=== PATIENT | female | born 1980 | race Caucasian/White ===

== ENCOUNTER 2016-11-03 04:07 | Emergency (ER) | payer MEDICAID, OTHER ==
[2016-11-03 04:17] VITALS: BP 125/80
--- NOTE | 2016-11-03 04:34 | ER Document Report ---
ED General - General Chief Complaint: Rash Stated Complaint: POSSIBLE RASH Time Seen by Provider: 11/03/16 04:25 Notes: Patient is a 36-year-old female presents with complaint of a rash. Patient says the rash is on the lower portion of her neck, and decrease of her left arm , and also in the creases of her inguinal folds. She has been applying steroid cream and Benadryl cream. She says it has not gone away and therefore she is come to the ER. It is not painful. She has had no fevers. No other complaints at this time. TRAVEL OUTSIDE OF THE [place] IN LAST 30 DAYS: No - Related Data Allergies/Adverse Reactions: No Known Allergies Allergy (Verified 05/11/15 19:02) Past Medical History - Social History Smoking Status: Unknown if Ever Smoked Frequency of alcohol use: None Drug Abuse: None Family History: Reviewed & Not Pertinent, Arthritis Patient has suicidal ideation: No Patient has homicidal ideation: No Renal/ Medical History: Denies: Hx Peritoneal Dialysis Musculoskeltal Medical History: Reports Hx Musculoskeletal Deformity, Reports Hx Musculoskeletal Trauma Past Surgical History: Reports: Hx Gynecologic Surgery - Leep, cauterization - Immunizations Hx Diphtheria, Pertussis, Tetanus Vaccination: Yes Review of Systems - Review of Systems Notes: My Normal Review Basic REVIEW OF SYSTEMS: CONSTITUTIONAL : Denies fever, chills, or sweats. Denies recent illness. GASTROINTESTINAL: Denies abdominal pain. Denies nausea, vomiting, or diarrhea. Denies constipation. Last BM: MUSCULOSKELETAL: Denies neck or back pain or joint pain or swelling. SKIN: Rash ALL OTHER SYSTEMS REVIEWED AND NEGATIVE. Physical Exam - Vital signs Vitals: Temp Pulse Resp BP Pulse Ox 97.4 F 71 18 125/80 99 11/03/16 04:12 11/03/16 04:12 11/03/16 04:12 11/03/16 04:12 11/03/16 04:12 - Notes Notes: General Appearance: Well nourished, alert, cooperative, no acute distress, no obvious discomfort. Well appearing. Vitals: reviewed, See vital signs table. Eyes: PERRL, EOMI, Conjuctiva clear Mouth: No decreasd moisture Extremities: strength 5/5 in all extremities, good pulses in all extremities, no swelling or tenderness in the extremities, no edema. Skin: Patient has erythematous macular rash that is easily blanchable and nonpainful in the left antecubital fossa as well as in bilateral inguinal folds. She has just a small spot over the base of her neck. The only location of the rashes are there is a skinfold. This is consistent with probable heat rash with secondary yeast infection. Neuro: speech clear, oriented x 3, normal affect, responds appropriately to questions. Course - Re-evaluation Re-evalutation: 11/03/16 04:36 The only location of the rashes are there is a skinfold. This is consistent with probable heat rash with secondary yeast infection. I will write prescription for Lotrisone cream. I encouraged her to return to ER if she has worsening redness or spreading of the rash, any swelling, or fevers. Patient agrees with plan and will be discharged home. Dictation of this chart was performed using voice recognition software; therefore, there may be some unintended grammatical errors. - Vital Signs Vital signs: Temp Pulse Resp BP Pulse Ox 97.4 F 71 18 125/80 99 11/03/16 04:12 11/03/16 04:12 11/03/16 04:12 11/03/16 04:12 11/03/16 04:12 Discharge - Discharge Clinical Impression: Rash Condition: Good Disposition: HOME, SELF-CARE Additional Instructions: Please apply a thin layer of the lotrisone cream to you rash daily. Please return to the ER or follow up with your doctor if you have worsening of your rash, fevers, or have any further concerns. Prescriptions: Clotrimazole/Betamethasone Dip [Lotrisone Cream] 45 gm TP ASDIR PRN #1 cream.gm. PRN Reason:
== END 2016-11-03 04:37 | disposition home or self-care (01) ==
LOC: ER 04:07
DX: R21 Rash and other nonspecific skin eruption (principal); M54.2 Cervicalgia; M79.602 Pain in left arm
CPT/HCPCS: 99282

== ENCOUNTER 2017-01-18 10:22 | Emergency (ER) | payer MEDICAID ==
--- NOTE | 2017-01-18 11:33 | RADIOLOGY REPORT (SQ) ---
EXAM DESCRIPTION: WRIST RIGHT 3 VIEWS COMPLETED DATE/TIME: 01/18/2017 11:18 am REASON FOR STUDY: fall last night, get navicular view COMPARISON: None. NUMBER OF VIEWS: Four views TECHNIQUE: AP, lateral, scaphoid view, and oblique radiographic images acquired of the right wrist. LIMITATIONS: None. FINDINGS: MINERALIZATION: Normal. BONES: No acute fracture or dislocation. No worrisome bone lesions. Normal alignment. SOFT TISSUES: No soft tissue swelling. No foreign body. OTHER: No other significant finding. IMPRESSION: NEGATIVE STUDY OF THE RIGHT WRIST. NO RADIOGRAPHIC EVIDENCE OF ACUTE INJURY. TECHNICAL DOCUMENTATION: JOB ID: [id number] [employer]- All Rights Reserved
--- NOTE | 2017-01-18 11:36 | RADIOLOGY REPORT (SQ) ---
EXAM DESCRIPTION: HAND RIGHT 3 VIEWS COMPLETED DATE/TIME: 01/18/2017 11:18 am REASON FOR STUDY: fall last night, get navicular view COMPARISON: None. EXAM PARAMETERS: NUMBER OF VIEWS: Three views. TECHNIQUE: AP, lateral and oblique radiographic images acquired of the right hand. LIMITATIONS: None. FINDINGS: MINERALIZATION: Normal. BONES: No acute fracture or dislocation. No worrisome bone lesions. JOINTS: No effusions. SOFT TISSUES: No soft tissue swelling. No foreign body. OTHER: No other significant finding. IMPRESSION: NEGATIVE STUDY OF THE RIGHT HAND. NO RADIOGRAPHIC EVIDENCE OF ACUTE INJURY. TECHNICAL DOCUMENTATION: JOB ID: [id number] [employer]- All Rights Reserved
--- NOTE | 2017-01-18 11:58 | ER Document Report ---
HPI - HPI Onset: Yesterday Quality of pain: Achy Pain Level: 3 Context: 36-year-old female hyper flexed her right wrist to prevent injury when she fell last night. She has pain proximal hand medial and laterally. No previous injury. Associated Symptoms: None Exacerbated by: Movement Relieved by: Denies Similar symptoms previously: No Recently seen / treated by doctor: No - ROS ROS below otherwise negative: Yes Systems Reviewed and Negative: Yes All other systems reviewed and negative - CARDIOVASCULAR Cardiovascular: DENIES: Chest pain - REPRODUCTIVE Reproductive: DENIES: : - DERM Skin Color: Normal Past Medical History - General Information source: Patient - Social History Smoking Status: Never Smoker Chew tobacco use (# tins/day): No Frequency of alcohol use: None Drug Abuse: None Lives with: Spouse/Significant other Family History: Reviewed & Not Pertinent, Arthritis - Medical History Medical History: Negative Renal/ Medical History: Denies: Hx Peritoneal Dialysis Musculoskeltal Medical History: Reports Hx Musculoskeletal Deformity, Reports Hx Musculoskeletal Trauma Past Surgical History: Reports: Hx Gynecologic Surgery - Leep, cauterization - Immunizations Hx Diphtheria, Pertussis, Tetanus Vaccination: Yes Vertical Provider Document - CONSTITUTIONAL Agree With Documented VS: Yes Exam Limitations: No Limitations General Appearance: No Apparent Distress - INFECTION CONTROL TRAVEL OUTSIDE OF THE [place] IN LAST 30 DAYS: No - HEENT HEENT: Normocephalic - NECK Neck: Supple - RESPIRATORY O2 Sat by Pulse Oximetry: 99 - MUSCULOSKELETAL/EXTREMETIES Musculoskeletal/Extremeties: MAEW, FROM, Tender - dorsal right hand , proximal right 1st MC, and over dorsal lateral carpel, mild swelling. NOn tender radius, ulna, and snuffbox - NEURO Level of Consciousness: Awake, Alert Motor/Sensory: No Motor Deficit, No Sensory Deficit - DERM Integumentary: Warm, Dry Course - Re-evaluation Re-evalutation: 01/18/17 11:58 X-rays are negative will place an Tip bandage on her hand and wrist - Vital Signs Vital signs: Temp Pulse Resp BP Pulse Ox 98.6 F 74 18 134/89 H 99 01/18/17 10:27 01/18/17 10:27 01/18/17 10:43 01/18/17 10:27 01/18/17 10:27 Procedures - Immobilization Right Wrist Time completed: 11:59 Pre-Proc Neuro Vasc Exam: Normal Immobilizer type: Tip wrap Performed by: PCT Post-Proc Neuro Vasc Exam: Normal Alignment checked and good: Yes Discharge - Discharge Clinical Impression: Right wrist and hand sprain Condition: Good Disposition: HOME, SELF-CARE Instructions: Acetaminophen, Tip Wrap ([facility]), Elevate the Injury ([facility]), Use of Gfah-Xli-Bpjpinx Ibuprofen ([facility]) Additional Instructions: Elevate above the heart to reduce swelling Tylenol and Motrin for pain Tip wrap for several days Copy of negative x-rays reports given to you to er if worse or any concerns Please complete the patient satisfaction survey if you get one, and return it.. If you do not receive a survey, then you can go to the [facility] website, [email or web address] and place your comments about your very good care. Thank you very much. It was a pleasure being your medical provider today. Forms: Return to Work
[2017-01-18 12:12] VITALS: BP 132/92
== END 2017-01-18 12:12 | disposition home or self-care (01) ==
LOC: ER 10:22
DX: S63.91XA Sprain of unspecified part of right wrist and hand, initial encounter (principal); W19.XXXA Unspecified fall, initial encounter
CPT/HCPCS: 99283

== ENCOUNTER 2017-05-12 18:47 | Emergency (ER) | payer MEDICAID, OTHER ==
[2017-05-12] MEDS ORDERED: ONDANSETRON 4 MG TAB.RAPDIS PO ONE (19:23)
[2017-05-12] MEDS ORDERED: OXYCODONE-ACETAMINOPHEN 5-325 MG TABLET PO ONE (19:23)
--- NOTE | 2017-05-12 19:27 | ER Document Report ---
ED Medical Screen (RME) - General Chief Complaint: Abdominal Pain Stated Complaint: ABDOMINAL PAIN Time Seen by Provider: 05/12/17 19:17 Notes: 36-year-old female patient comes emergency room complaining of severe abdominal pain started about 6 PM tonight. It started about 15 minutes after eating some thin-slice pizza. There is nausea without vomiting. She is sobbing sitting in a wheelchair holding her lower abdomen and rocking back and forth mostly leaning forward. She indicates the pain in the abdomen is all the way across the lower abdomen. She reports she has been having diarrhea with abdominal cramping and ears popping for the past 3 weeks. Brief exam shows severe epigastric tenderness without right upper quadrant abdominal tenderness. There is also severe left lower quadrant abdominal tenderness without right lower quadrant abdominal tenderness. She states she does not smoke, however there is a strong odor of some tobacco product on or around her. I have greeted and performed a rapid initial assessment of this patient. A comprehensive ED assessment and evaluation of the patient, analysis of test results and completion of the medical decision making process will be conducted by additional ED providers. TRAVEL OUTSIDE OF THE [place] IN LAST 30 DAYS: No - Related Data Allergies/Adverse Reactions: No Known Allergies Allergy (Verified 05/12/17 18:49) Past Medical History - Social History Chew tobacco use (# tins/day): No Frequency of alcohol use: None Drug Abuse: None Renal/ Medical History: Denies: Hx Peritoneal Dialysis Musculoskeltal Medical History: Reports Hx Musculoskeletal Deformity, Reports Hx Musculoskeletal Trauma Past Surgical History: Reports: Hx Gynecologic Surgery - Leep, cauterization - Immunizations Hx Diphtheria, Pertussis, Tetanus Vaccination: Yes Physical Exam - Vital signs Vitals: Temp Pulse Resp BP Pulse Ox 98.2 F 111 H 24 H 154/108 H 96 05/12/17 18:56 05/12/17 18:56 05/12/17 18:56 05/12/17 18:56 05/12/17 18:56 Course - Vital Signs Vital signs: Temp Pulse Resp BP Pulse Ox 98.2 F 111 H 24 H 154/108 H 96 05/12/17 18:56 05/12/17 18:56 05/12/17 18:56 05/12/17 18:56 05/12/17 18:56 - Laboratory Result Diagrams: 05/12/17 19:56 05/12/17 19:56 Laboratory results interpreted by me: 05/12/17 05/12/17 19:56 19:56 WBC 11.9 H RDW 15.3 H Absolute Neutrophils 8.9 H Glucose 123 H
[2017-05-12 20:11] LABS: ABSOLUTE BASOPHILS # (AUTO) 0.1 10^3/uL (0.0-0.2); ABSOLUTE EOSINOPHILS # (AUTO) 0.4 10^3/uL (0.0-0.6); ABSOLUTE LYMPHOCYTES (AUTO) 1.8 10^3/uL (0.5-4.7); ABSOLUTE MONOCYTES (AUTO) 0.7 10^3/uL (0.1-1.4); ABSOLUTE NEUT (AUTO) 8.9 10^3/uL (1.7-8.2); BASOPHILS % (AUTO) 0.9 % (0-2); EOSINOPHILS % (AUTO) 3.7 % (0-6); HEMATOCRIT 42.3 % (36.0-47.0); HEMOGLOBIN 14.1 g/dL (12.0-15.5); LYMPHOCYTES % (AUTO) 15.3 % (13-45); MEAN CORPUSCULAR HEMOGLOBIN 28.2 pg (27.0-33.4); MEAN CORPUSCULAR HGB CONC 33.3 g/dL (32.0-36.0); MEAN CORPUSCULAR VOLUME 85 fl (80-97); MONOCYTES % (AUTO) 5.5 % (3-13); PLATELET COUNT 351 10^3/uL (150-450); RED BLOOD COUNT 4.98 10^6/uL (3.72-5.28); RED CELL DISTRIBUTION WIDTH 15.3 % (11.5-14.0); SEGMENTED NEUTROPHILS % (AUTO) 74.6 % (42-78); TOTAL CELLS COUNTED % (AUTO) 100 %; WHITE BLOOD COUNT 11.9 10^3/uL (4.0-10.5)
[2017-05-12 20:38] LABS: ALANINE AMINOTRANSFERASE 19 U/L (9-52); ALBUMIN 4.5 g/dL (3.5-5.0); ALKALINE PHOSPHATASE 75 U/L (38-126); ANION GAP 12 (5-19); ASPARTATE AMINO TRANSFERASE 15 U/L (14-36); BILIRUBIN,DIRECT 0.2 mg/dL (0.0-0.4); BILIRUBIN,TOTAL 0.2 mg/dL (0.2-1.3); BLOOD UREA NITROGEN 8 mg/dL (7-20); CARBON DIOXIDE 25 mmol/L (22-30); CHLORIDE 106 mmol/L (98-107); GLUCOSE 123 mg/dL (75-110); POTASSIUM 4.3 mmol/L (3.6-5.0); TOTAL PROTEIN 7.7 g/dL (6.3-8.2)
[2017-05-12 21:45] LABS: APPEARANCE,URINE SLIGHTLY-CLOUDY; BILIRUBIN,URINE NEGATIVE (NEGATIVE); CALCIUM OXALATE CRYSTALS,URINE MODERATE /HPF; COLOR,URINE YELLOW; GLUCOSE, URINE NEGATIVE (NEGATIVE); KETONES,URINE NEGATIVE (NEGATIVE); LEUKOCYTE ESTERASE,URINE NEGATIVE (NEGATIVE); NITRITE,URINE NEGATIVE (NEGATIVE); PROTEIN,URINE NEGATIVE (NEGATIVE); URINE SPECIFIC GRAVITY 1.023; UROBILINOGEN,URINE NEGATIVE mg/dL (<2.0)
[2017-05-12 21:57] LABS: URINE AMPHETAMINES SCREEN NEGATIVE; URINE BARBITURATES SCREEN NEGATIVE; URINE BENZODIAZEPINES SCREEN NEGATIVE; URINE COCAINE SCREEN NEGATIVE; URINE MARIJUANA (THC) SCREEN NEGATIVE; URINE METHADONE SCREEN NEGATIVE; URINE PHENCYCLIDINE SCREEN NEGATIVE
[2017-05-12] MEDS ORDERED: DICYCLOMINE HCL INJ 20 MG/2 ML AMPULE IM PRN (22:58)
--- NOTE | 2017-05-12 23:41 | ER Document Report ---
ED General - General Information source: Patient TRAVEL OUTSIDE OF THE [place] IN LAST 30 DAYS: No - HPI Patient complains to provider of: abdominal pain Onset: Just prior to arrival Onset/Duration: Sudden Quality of pain: Pressure Severity: Moderate Associated symptoms: Nausea Exacerbated by: Denies Relieved by: Denies <JACKELYN BARLOW - Last Filed: 05/13/17 00:19> <HETAL MARTINEZ - Last Filed: 05/13/17 02:26> - General Chief Complaint: Abdominal Pain Stated Complaint: ABDOMINAL PAIN Time Seen by Provider: 05/12/17 19:17 - HPI Notes: She states she ate a pizza that was brand-new just prior to arrival and shortly thereafter developed epigastric pain as well as bilateral lower quadrant abdominal pain. Patient states it is associated with nausea (no vomiting )and cramping. She states that she had a left ear infection and she was on antibiotics for stays however since it began to bother her stomach her doctor discontinued medication a few days ago. She states she has been having intermittent diarrhea for the last few days as well. (JACKELYN BARLOW) - Related Data Allergies/Adverse Reactions: No Known Allergies Allergy (Verified 05/12/17 18:49) Past Medical History - General Information source: Patient - Social History Smoking Status: Never Smoker Chew tobacco use (# tins/day): No Frequency of alcohol use: None Drug Abuse: None Family History: Reviewed & Not Pertinent, Arthritis Patient has suicidal ideation: No Patient has homicidal ideation: No - Past Medical History Cardiac Medical History: Reports: None Pulmonary Medical History: Reports: None EENT Medical History: Reports: None Neurological Medical History: Reports: None Endocrine Medical History: Reports: None Renal/ Medical History: Reports: None. Denies: Hx Peritoneal Dialysis Malignancy Medical History: Reports: None GI Medical History: Reports: None Musculoskeltal Medical History: Reports Hx Musculoskeletal Deformity, Reports Hx Musculoskeletal Trauma Skin Medical History: Reports None Psychiatric Medical History: Reports: None Traumatic Medical History: Reports: None Infectious Medical History: Reports: None Past Surgical History: Reports: Hx Gynecologic Surgery - Leep, cauterization - Immunizations Hx Diphtheria, Pertussis, Tetanus Vaccination: Yes <JACKELYN BARLOW E - Last Filed: 05/13/17 00:19> Physical Exam <JACKELYN BARLOW E - Last Filed: 05/13/17 00:19> <HETAL MARTINEZ - Last Filed: 05/13/17 02:26> - Vital signs Vitals: Temp Pulse Resp BP Pulse Ox 98.2 F 111 H 24 H 154/108 H 96 05/12/17 18:56 05/12/17 18:56 05/12/17 18:56 05/12/17 18:56 05/12/17 18:56 - Notes Notes: PHYSICAL EXAMINATION: GENERAL: Well-appearing, well-nourished and in mild distress due to abdominal pain. HEAD: Atraumatic, normocephalic. EYES: Pupils equal round and reactive to light, extraocular movements intact, conjunctiva are normal. ENT: Nares patent, oropharynx clear without exudates. Moist mucous membranes. NECK: Normal range of motion, supple without lymphadenopathy LUNGS: Breath sounds clear to auscultation bilaterally and equal. No wheezes rales or rhonchi. HEART: Regular rate and rhythm without murmurs ABDOMEN: Obese, soft, epigastric as well as bilateral lower quadrant mild tenderness, nondistended abdomen. No guarding, no rebound. No masses appreciated. Female : deferred Musculoskeletal: Normal range of motion, no pitting or edema. No cyanosis. NEUROLOGICAL: Cranial nerves grossly intact. Normal speech, normal gait. Normal sensory, motor exams PSYCH: Normal mood, normal affect. SKIN: Warm, Dry, normal turgor, no rashes or lesions noted. (RINPARISHDUYENBEHZAD Henley) Course - Laboratory Result Diagrams: 05/12/17 19:56 05/12/17 19:56 <RINJACKELYN LUGO E - Last Filed: 05/13/17 00:19> - Laboratory Result Diagrams: 05/12/17 19:56 05/12/17 19:56 <HETAL MARTINEZ - Last Filed: 05/13/17 02:26> - Re-evaluation Re-evalutation: 05/12/17 23:45 I did try patients with p.o. fluids and she stated that her abdominal pain is increasing. I will get a CT of her abdomen with IV contrast. Also ordered Bentyl 20 mg IM for the patient (DUYEN BARLOWBEHZAD Lory) 05/13/17 02:25 Patient was checked out to me by Dr. betts. She said the patient's CT scan was normal she felt that she could go home. I have reevaluated the patient. Patient still has just mild pain in the left lower quadrant. The rest of her pain is resolved. She says the Bentyl seemed to have helped her. She said that she was started on Imodium by her primary care doctor because of diarrhea. Last few days she is followed by constipation. I encouraged her to stop taking Imodium. CT scan shows no acute concerning abnormalities. I do not see any acute concerning abnormalities on her laboratory evaluation needed. I encourage patient to follow-up closely with the GI physician. I gave her the numbers to both Dr. Ruffin and Dr. Collins. I encouraged her to call them to see who can fit her and the soonest. I encouraged her return to ER immediately if she has worsening pain, fevers, vomiting, or blood in her stool. I encourage her to eat a very bland diet and to avoid acidic foods. I will also place her on Prilosec. Patient agrees with plan will be discharged home. Dictation of this chart was performed using voice recognition software; therefore, there may be some unintended grammatical errors. (HETAL MARTINEZ) - Vital Signs Vital signs: Temp Pulse Resp BP Pulse Ox 98.2 F 77 16 120/69 100 05/12/17 18:56 05/12/17 21:13 05/12/17 21:13 05/12/17 21:13 05/12/17 21:13 - Laboratory Laboratory results interpreted by me: 05/12/17 05/12/17 05/12/17 19:56 19:56 21:20 WBC 11.9 H RDW 15.3 H Absolute Neutrophils 8.9 H Glucose 123 H Urine Blood SMALL H 05/12/17 23:45 HCG negative urinalysis unremarkable (JACKELYN BARLOW) Discharge <JACKELYN BARLOW - Last Filed: 05/13/17 00:19> <HETAL MARTINEZ - Last Filed: 05/13/17 02:26> - Discharge Clinical Impression: Abdominal pain Condition: Stable Disposition: HOME, SELF-CARE Instructions: Abdominal Pain ([facility]), Antispasmodics ([facility]) Additional Instructions: Return to the emergency department immediately if you have fevers, vomiting that will not resolve, increased abdominal pain or any other concerns. Please stop taking the immodium for now. Please call your doctor for a close follow up appointment in the next 1-2 days. Please call the GI physician to make a follow up appointment for furthe rworkup of your continued abdominal pain and diarrhea. I have placed the numbers for both Dr. Ruffin and Dr. Collins. call to see who can see you the soonest. Prescriptions: Dicyclomine HCl [Bentyl 20 mg Tablet] 20 mg PO Q6 PRN #20 tablet PRN Reason: abdominal pain Omeprazole Magnesium [Prilosec Otc] 20 mg PO DAILY #30 tablet. Ondansetron [Zofran Odt 4 mg Tablet] 1 tab PO Q4H PRN #15 tab.rapdis PRN Reason: For Nausea/Vomiting Referrals: LUCINDA MENDOZA DO [NO LOCAL MD] - Follow up as needed JOSÉ MIGUEL RUFFIN MD [ACTIVE STAFF] - Follow up in 3-5 days (call for a follow up appointment) LIS COLLINS MD [ACTIVE STAFF] - Follow up in 3-5 days
--- NOTE | 2017-05-13 01:00 | RADIOLOGY REPORT (SQ) ---
EXAM DESCRIPTION: CT ABD/PELVIS WITH IV ONLY CLINICAL HISTORY: 36 years Female, Epigastric LLQ abd pain/increased WBC COMPARISON: CR, chest, 07/23/2015. TECHNIQUE: 100 mL Isovue-370 IV contrast. Coronal and sagittal reformat. This exam was performed according to our departmental dose-optimization program, which includes automated exposure control, adjustment of the mA and/or kV according to patient size and/or use of iterative reconstruction technique. FINDINGS: No acute findings. Normal appendix. No significant free fluid. 3.9 cm umbilical fat only hernia. Calcified splenic granuloma. 0.3 cm calcified granuloma of the right lower pulmonary lobe. Inferior thorax, liver, gallbladder, pancreas, adrenals, renal system, gastrointestinal tract, pelvic organs, lymphatics, vasculature, and musculoskeleton appear otherwise unremarkable. IMPRESSION: No acute findings.
[2017-05-13 03:05] VITALS: BP 109/57
== END 2017-05-13 02:40 | disposition home or self-care (01) ==
LOC: ER 18:47
DX: R10.32 Left lower quadrant pain (principal); R10.13 Epigastric pain; R10.31 Right lower quadrant pain; R11.0 Nausea; R19.7 Diarrhea, unspecified
CPT/HCPCS: 99284; 96372; 36415; 83690; 84703; 85025; 80053; 81001; 80307; 74177; J0500; S0119